=== PATIENT | female | born 1990 | race Asian ===

== ENCOUNTER → 2020-10-17 11:40 | Outpatient (CLI) | payer OTHER, SELFPAY ==
[2020-10-19 09:56] LABS: Chlamydia trachomatis NAA Negative (Negative); Neisseria gonorrhoeae NAA Negative (Negative)
== END ==
PROVIDERS: Visit Provider Specialist
DX: Z34.81 Encounter for supervision of other normal pregnancy, first trimester (principal); Z11.3 Encounter for screening for infections with a predominantly sexual mode of transmission
CPT/HCPCS: 87491; 87591

== ENCOUNTER → 2020-10-17 12:26 | Outpatient (CLI) | payer OTHER, SELFPAY ==
[2020-10-17 13:49] LABS: Add Manual Diff / Slide Review NO; Basophils Absolute Auto 0 /uL (0-100); Basophils Percent Auto 0.2 % (0-2); Eosinophils Absolute Auto 100 /uL (0-450); Eosinophils Percent Auto 2.1 % (2-4); Hematocrit 38.6 % (36-46); Hemoglobin 13.6 g/dL (12.0-16.0); Lymphocytes Absolute Auto 1200 /uL (1100-4500); Lymphocytes Percent Auto 19.5 % (25-40); Mean Corpuscular HGB Conc 35.2 % (30-36); Mean Corpuscular Hemoglobin 29.2 PG (26-34); Monocytes Absolute Auto 400 /uL (0-900); Monocytes Percent Auto 6.9 % (3-14); Neutrophils Absolute Auto 4500 /uL (1500-7000); Neutrophils Percent Auto 71.3 % (50-75); Platelet Count 253 X10^3/uL (150-400); Red Blood Cell Count 4.65 X10^6/uL (4.0-5.2); Red Cell Distribution Width 12.4 % (11.6-14.8); White Blood Cell Count 6.3 X10^3/uL (4.5-11.0)
[2020-10-17 14:16] LABS: Appearance Urine UA CLEAR; Bilirubin Urine UA NEGATIVE (NEGATIVE); Color Urine UA YELLOW; Glucose Urine UA NEGATIVE (Negative); Ketones Urine UA NEGATIVE (NEGATIVE); Leukocyte Esterase Urine UA 1+ (NEGATIVE); Nitrite Urine UA NEGATIVE (Negative); Occult Blood Urine UA NEGATIVE (Negative); Protein Urine UA NEGATIVE (Negative); Urobilinogen Urine UA 0.2 E.U./dL (0.2)
[2020-10-17 14:31] LABS: Bacteria Urine None Seen; RBC Urine None Seen (0-5/HPF)
[2020-10-17 14:55] LABS: WBC Urine 0-1/HPF (0-5/HPF)
[2020-10-18 09:15] LABS: RPR Screen Non Reactive (Non Reactive); Varicella IgG Antibody 1054 index (Immune >165)
[2020-10-20 16:17] LABS: Hepatitis B Surface Antigen NEGATIVE s/c (NEGATIVE); Rubella Antibody IgG 14.9 IU/mL (>15)
[2020-10-20 16:42] LABS: HIV 1 & 2 Ab/Ag 4th Gen Combo NEGATIVE (NEGATIVE); Hep C Virus Ab w/Reflex Quant NEGATIVE s/c (NEGATIVE)
== END ==
PROVIDERS: Referring Provider Specialist; Visit Provider Specialist
DX: Z34.81 Encounter for supervision of other normal pregnancy, first trimester (principal); Z11.3 Encounter for screening for infections with a predominantly sexual mode of transmission
CPT/HCPCS: 36415; 80055; 81003; 81015; 86787; 86803; 86850; 86900; 86901; 87086; 87389; 87491; 87591

== ENCOUNTER → 2020-12-10 13:58 | Outpatient (CLI) | payer OTHER, SELFPAY ==
[2020-12-12 19:38] LABS: AFP, Serum 21.5 ng/mL (.); Calc Gestational Age Ultrasound (.); Inhibin A, Dimeric 52.92 pg/mL (.); Inhibin A, MoM 0.34 (.); Maternal Ethnicity Other (.); Maternal Weight 152 lbs (.); Number of Fetuses No (.); OSBR Risk 1 IN 10000 (.); Results Report (.); Test Results *Screen Positive* (.); hCG, MoM 0.23 (.); hCG, Serum 9242 mIU/mL (.)
== END ==
PROVIDERS: Referring Provider Specialist; Visit Provider Specialist
DX: Z34.82 Encounter for supervision of other normal pregnancy, second trimester (principal); Z3A.16 16 weeks gestation of pregnancy
CPT/HCPCS: 36415; 82105; 82677; 84702; 86336

== ENCOUNTER → 2021-01-08 15:07 | Outpatient (CLI) | payer OTHER, SELFPAY ==
--- NOTE | 2021-01-08 15:09 | DI.US.S_ITS ---
PROCEDURE: US OB >= 14 WEEKS FETUS INDICATIONS: ANATOMY OUTSIDE/PRIOR DATING DATA: Last menstrual period (LMP): 08/19/2020. LMP-based estimated date of delivery (NAZ): 05/26/2021 . First dating scan (date and location): 01/08/2021 . Estimated date of delivery (NAZ) from first dating scan: 05/29/2021 . TECHNIQUE: Real-time scanning was performed of the fetus, with image documentation and biometric measurements. Endovaginal scanning: No COMPARISON: [facility], , OB >= 14 WEEKS FETUS, 01/08/2021, 14:49. FINDINGS: General: A single living intrauterine gestation is present. Presentation: Vertex. Placenta: Placental position is anterior , without previa. Amniotic fluid index: 14.7 cm, normal range is 5-24 cm. heart rate: 155 beats per minute. Maternal cervical canal: 4.6 cm long. Normal lower limit is 2.5 cm. biometrics: Biparietal diameter: 20 weeks 1 day Head circumference: 19 weeks 5 days Abdominal circumference: 20 weeks 2 days Femur length: 19 weeks 2 days Estimated gestational age from initial scan: 20 weeks 2 days Composite gestational age from present scan: 19 weeks 6 days Estimated weight and percentile: 315 g, 20 second percentile Measurement variability for biometric dating: +/- 7 days from 14 weeks to 15 weeks 6 days gestation, +/- 10 days from 16 weeks to 21 weeks 6 days gestation, +/- 2 weeks from 22 weeks to 27 weeks 6 days gestation, +/- 3 weeks for 28 weeks gestation or later. weight reference: 4500 g or EFW >90/95% is considered macrosomia or large for gestational age. EFW <10% is small for gestational age. EFW 5% or less is considered intra-uterine growth restriction. Anatomic survey: Neuro: Ventricles are non-dilated at less than 10 mm. Cisterna magna is normal at 3-11 mm. Cerebellum is normal in size and morphology. Nuchal skin fold: Normal at less than 6 mm between 14-21 weeks gestational age. Face: Nose and lips, facial profile are normal. Spine: Not well seen. Heart: 4-chambered heart is present, with normal ventricular outflow tracts. Diaphragm: Diaphragm is intact. Stomach: Left-sided stomach is present. Kidneys: No hydronephrosis. Normal is less than 5 mm in 2nd trimester, less than 7 mm in 3rd trimester. Cord: 3-vessel cord has orthotopic insertion. Bladder: Normal in size. Extremities: All 4 extremities identified. IMPRESSION: 1. Single living IUP redemonstrated and interval growth is normal. 2. spine not well visualized; otherwise normal anatomic survey. Dictated by: Lul Bain [facility] Interpreted: Aniceto De La Torre MD on 01/08/2021 at 16:37 Transcribed by: BRIDGET on 01/08/2021 at 16:39 Approved by: Aniceto De La Torre M.D. on 01/08/2021 at 16:55
== END ==
PROVIDERS: PCP Family Medicine; Referring Provider Specialist; Visit Provider Specialist
DX: Z34.82 Encounter for supervision of other normal pregnancy, second trimester (principal); Z3A.19 19 weeks gestation of pregnancy
CPT/HCPCS: 76811

== ENCOUNTER → 2021-01-21 15:43 | Outpatient (CLI) | payer OTHER, SELFPAY ==
--- NOTE | 2021-01-21 15:44 | DI.US.S_ITS ---
PROCEDURE: US OB FOLLOW UP INDICATIONS: Spine not well seen OUTSIDE/PRIOR DATING DATA: Last menstrual period (LMP): 08/19/2020. LMP-based estimated date of delivery (NAZ): 05/26/2021. First dating scan (date and location): 01/08/2021. Estimated date of delivery (NAZ) from first dating scan: 05/29/2021. TECHNIQUE: Real-time scanning was performed of the fetus, with image documentation. Endovaginal scanning: Not performed COMPARISON: 01/08/2021. FINDINGS: A single living intrauterine gestation is present. Presentation: Cephalic. Placenta: Placental position is anterior, without previa. heart rate: 144 beats per minute. Estimated gestational age from prior scan: 21 weeks 5 days. spine is now seen and is normal in appearance. IMPRESSION: 1. [place] living intrauterine at 21 weeks 5 days based on prior ultrasound. 2. spine is now seen and normal in appearance. Completed anatomic survey. Dictated by: Kevyn Villa M.D. on 01/21/2021 at 17:30 Approved by: Kevyn Villa M.D. on 01/21/2021 at 17:35
== END ==
PROVIDERS: PCP Family Medicine; Referring Provider Specialist; Visit Provider Specialist
DX: Z36.2 Encounter for other antenatal screening follow-up (principal); Z3A.21 21 weeks gestation of pregnancy
CPT/HCPCS: 76816

== ENCOUNTER → 2021-02-19 07:24 | Outpatient (CLI) | payer OTHER, SELFPAY ==
[2021-02-19 10:26] LABS: Hematocrit 33.1 % (36-46); Hemoglobin 11.5 g/dL (12.0-16.0)
[2021-02-19 11:34] LABS: GTT (PREG) 1 Hour PP 50gm Dose 101 mg/dL (76-139)
== END ==
PROVIDERS: PCP Family Medicine; Referring Provider Specialist; Visit Provider Specialist
DX: Z34.82 Encounter for supervision of other normal pregnancy, second trimester (principal); Z3A.25 25 weeks gestation of pregnancy
CPT/HCPCS: 36415; 82950; 85014; 85018

== ENCOUNTER → 2021-04-29 11:36 | Outpatient (CLI) | payer OTHER, SELFPAY ==
[2021-04-30 15:39] LABS: Strep Grp B PCR NEG for Grp B Strep
== END ==
PROVIDERS: PCP Family Medicine; Visit Provider Specialist
DX: Z34.83 Encounter for supervision of other normal pregnancy, third trimester (principal); Z3A.36 36 weeks gestation of pregnancy
CPT/HCPCS: 87653

== ENCOUNTER → 2021-05-18 09:38 | Outpatient (CLI) | payer OTHER, SELFPAY ==
[2021-05-18 10:58] LABS: COVID19 -Nasal RAPID Negative (Negative)
== END ==
PROVIDERS: PCP Family Medicine; Visit Provider Specialist
DX: Z01.812 Encounter for preprocedural laboratory examination (principal); Z20.822 Contact with and (suspected) exposure to COVID-19
CPT/HCPCS: 87635

== ENCOUNTER 2021-05-19 11:36 | Inpatient (IN) | payer OTHER, SELFPAY ==
[2021-05-13 15:20] VITALS: BP 115/57; PULSE 67; RESP 24; O2SAT 100
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
[2021-05-19 12:54] VITALS: BP 125/65
[2021-05-19] MEDS: LACTATED RINGERS 1,000 ML 100 ML IV ×3 (13:05→21:13)
[2021-05-19 13:16] LABS: Add Manual Diff / Slide Review NO; Basophils Absolute Auto 0 /uL (0-100); Basophils Percent Auto 0.4 % (0-2); Eosinophils Absolute Auto 100 /uL (0-450); Eosinophils Percent Auto 0.8 % (2-4); Hematocrit 38.3 % (36-46); Hemoglobin 12.8 g/dL (12.0-16.0); Lymphocytes Absolute Auto 1400 /uL (1100-4500); Lymphocytes Percent Auto 16.2 % (25-40); Mean Corpuscular HGB Conc 33.3 % (30-36); Mean Corpuscular Hemoglobin 27.8 PG (26-34); Mean Corpuscular Volume 83.4 fL (80-100); Monocytes Absolute Auto 600 /uL (0-900); Monocytes Percent Auto 6.4 % (3-14); Neutrophils Absolute Auto 6700 /uL (1500-7000); Neutrophils Percent Auto 76.2 % (50-75); Platelet Count 257 X10^3/uL (150-400); Red Blood Cell Count 4.59 X10^6/uL (4.0-5.2); Red Cell Distribution Width 13.7 % (11.6-14.8); White Blood Cell Count 8.8 X10^3/uL (4.5-11.0)
[2021-05-19] MEDS: CEFAZOLIN 1 GM VIAL 2 GM IV (14:20)
--- NOTE | 2021-05-19 14:46 | SUR.OPER ---
Supine on Padded OR bed, head on pillow, safety belt at thigh, arms secured on padded arm boards at <90 degrees abduction. Bump under right buttock. Legs uncrossed with pillow under knees, gel pad to heels, tape over blanket to lower legs.
--- NOTE | 2021-05-19 14:46 | SUR.OPER ---
Viable female delivered at 1436. Placenta and cord blood sent with L&D nurse.
[2021-05-19 15:15] VITALS: BP 114/53; PULSE 72; RESP 16; TEMP 36; O2SAT 100
--- NOTE | 2021-05-19 15:23 | PM.OP.1 ---
Operative Date/Time/Diagnoses Date of procedure: 05/19/21 Time of procedure: 15:23 Pre-op diagnosis: 39 week gestation with prior section Post-op diagnosis: same Procedure & Clinicians Procedure: repeat low-transverse section Same procedure as scheduled: Yes Indications: 39 week gestation with prior section Surgeon: Jayshree Martin Transition Advisor: Herbert Velasquez Click Yes if Unassisted: No Anesthesia Type: Spinal Operative Notes Findings: Normal tubes, ovaries, uterus. Viable female infant weighing 6 lb 5 oz with Apgars of 9 and 9 Closure Type: primary Specimen(s): none sent Applied: catheter ( Reyna) Estimated Blood Loss (mL): 350 Blood products transfused: none Procedure in detail: The patient was brought to the operating room where she underwent A spinal for anesthesia. She was placed in a supine position with a left lateral tilt. A Reyna catheter was placed. Pulsatile stockings were placed and functional throughout the case. 2 g of Ancef were given IV prior to the incision. Warming was in place. The patient was prepped and draped in usual sterile fashion. A low transverse incision was made with a scalpel and the incision was carried down to the fascial layer which was incised transversely with scissors. The rehabilitation assistant did his side of the incision. The midline attachments are superiorly and inferiorly. Some bleeding was controlled Bovie. The rectus muscles were in the midline and the peritoneal incision was made with no damage to internal structures. The peritoneum was incised and superiorly and inferiorly. The incision was stretched with the surgeon and rehabilitation assistant placing traction. Bladder blade was placed and a bladder flap was developed and the bladder held away from the lower uterine segment. An incision was made in the uterus with the scalpel and the incision was extended with stretching. The head was elevated out of the abdomen with assistance from the vacuum extractor and with fundal pressure by the rehabilitation assistant the baby was delivered. The infant was bulb suctioned for clear fluid and handed off to the warmer after delayed cord clamping for 1 minute. Cord blood was collected. The placenta delivered spontaneously with traction. The uterus was cleaned with clean laps. The uterine incision was closed in 2 layers of 0 chromic suture the first a running locking layer the second an imbricating layer. The rehabilitation assistant was helping to expose the incision. The bladder peritoneum was repaired with 2-0 Vicryl suture. The gutters were cleaned of any remaining fluids and ovaries and tubes were observed to be normal. Adequate hemostasis was noted. The perineum was closed with 2-0 Vicryl suture. The fascia layer was closed with 0 Vicryl suture with 2 stitches. The rehabilitation assistant repairing half the incision with helping to retract and expose the incision for the other half. The incision was irrigated and adequate hemostasis noted. The incision was closed with interrupted 3-0 Vicryl sutures and then a subcuticular stitch of 4-0 Vicryl suture. Steri-Strips were placed. The uterus was massaged to remove any clots. The patient went to recovery room in good condition. Counts of instruments and sponges were correct. Dr. Velasquez was present throughout the case to assist with retraction, fundal pressure to deliver the infant, and suturing half the fascia. Complications: none Post-operative Condition: stable Disposition: other ( Center) Plan for aftercare: routine post section care
[2021-05-19 15:45] VITALS: BP 112/70; PULSE 90; RESP 20; TEMP 36.4; O2SAT 100
[2021-05-19 15:50] VITALS: BP 99/63; PULSE 90; RESP 18; O2SAT 100
--- NOTE | 2021-05-19 16:18 | SUR.PHASEI ---
Pt condition stable VSS, report given to RN Milagro and pt aware of transfer plan.
[2021-05-19] MEDS: OXYTOCIN PREMIX 30 UNIT/500 ML PLAST..BAG 200 UNIT IV (19:23)
[2021-05-19] MEDS: ONDANSETRON 4 MG/2 ML INJ IV (19:24)
[2021-05-19] MEDS: KETOROLAC 30 MG/ML VIAL IV (21:12)
[2021-05-20] MEDS: KETOROLAC 30 MG/ML VIAL IV ×2 (03:25→09:23)
[2021-05-20 07:16] LABS: Add Manual Diff / Slide Review NO; Basophils Absolute Auto 0 /uL (0-100); Basophils Percent Auto 0.1 % (0-2); Eosinophils Absolute Auto 0 /uL (0-450); Eosinophils Percent Auto 0.4 % (2-4); Lymphocytes Absolute Auto 1200 /uL (1100-4500); Lymphocytes Percent Auto 10.9 % (25-40); Mean Corpuscular HGB Conc 33.8 % (30-36); Mean Corpuscular Hemoglobin 28.3 PG (26-34); Mean Corpuscular Volume 83.8 fL (80-100); Monocytes Absolute Auto 900 /uL (0-900); Monocytes Percent Auto 7.8 % (3-14); Neutrophils Absolute Auto 9100 /uL (1500-7000); Neutrophils Percent Auto 80.8 % (50-75); Platelet Count 201 X10^3/uL (150-400); Red Blood Cell Count 2.12 X10^6/uL (4.0-5.2); Red Cell Distribution Width 13.8 % (11.6-14.8); White Blood Cell Count 11.3 X10^3/uL (4.5-11.0)
[2021-05-20 07:18] LABS: Hematocrit 17.8 % (36-46)
--- NOTE | 2021-05-20 07:42 | P.PNOB_ITS ---
Subjective - OB Subjective Patient comments: incisional pain baby status: doing well feeding status: exclusively breast feeding Date Patient Seen: 05/20/21 Time Patient Seen: 07:42 Interval history: Post repeat section day 1. Patient just got out of bed and has some dizziness. She has 7/10 pain over incision but otherwise feels she is doing well. Exam Vital Signs (past 8 hours): Blood pressure 121/68, pulse of 87, temperature 98.7? Oxygen Delivery Method Room Air Narrative Exam Narrative: abdomen is soft, nontender. Uterus is firm, above umbilicus, nontender. Extremities without edema and nontender. Objective Labs Result Diagrams: 05/20/21 06:45 Labs: Laboratory Results - last 24 hr 05/19/21 05/19/21 05/20/21 13:02 13:02 06:45 WBC 8.8 11.3 H RBC 4.59 2.12 L Hgb 12.8 6.0 L* Hct 38.3 17.8 L* MCV 83.4 83.8 MCH 27.8 28.3 MCHC 33.3 33.8 RDW 13.7 13.8 Plt Count 257 201 Neut % (Auto) 76.2 H 80.8 H Lymph % (Auto) 16.2 L 10.9 L [place] % (Auto) 6.4 7.8 Eos % (Auto) 0.8 L 0.4 L Baso % (Auto) 0.4 0.1 Neut # (Auto) 6700 9100 H Lymph # (Auto) 1400 1200 [place] # (Auto) 600 900 Eos # (Auto) 100 0 Baso # (Auto) 0 0 Blood Type O Positive Antibody Screen Negative Assessment & Plan Assessment and Plan (1) Acute blood loss anemia: Status: Acute Plan day: 1 plan OB: routine postop care Comments: Will try IV iron and monitor blood count to see transfusion is necessary. Time Spent With Patient Time: Total time spent is greater than 50% in coordination of care (as d ocumented) at patient's floor/unit and/or counseling patient: Time with patient: less than 15 minutes
[2021-05-20] MEDS: IRON SUCROSE 100 MG in SODIUM CHLORIDE 0.9% 100 ML 420 ML IV (08:47)
[2021-05-20] MEDS: DOCUSATE 100 MG CAPSULE 200 MG PO (08:48)
[2021-05-20] MEDS: ACETAMINOPHEN 325 MG TABLET 650 MG PO ×2 (09:23→15:23)
[2021-05-20] MEDS: IBUPROFEN 600 MG TABLET PO ×2 (15:22→21:11)
[2021-05-20] MEDS: OXYCODONE IR 5 MG TABLET PO ×2 (17:15→21:13)
[2021-05-20 18:11] LABS: Hematocrit 16.3 % (36-46); Hemoglobin 5.5 g/dL (12.0-16.0)
--- NOTE | 2021-05-20 20:10 | PM.OBPN.1 ---
Subjective - OB Subjective Patient comments: incisional pain baby status: doing well feeding status: exclusively breast feeding Date Patient Seen: 05/20/21 Time Patient Seen: 20:10 Interval history: Patient is ambulatory. She has some initial mild dizziness but overall is feeling well. She has some intermittent headaches. She is urinating well. She is passing gas. Exam Vital Signs (past 8 hours): Blood pressure 126/70, pulse 78, temperature 98.3? Oxygen Delivery Method Room Air Narrative Exam Narrative: Abdomen is soft, nontender. Uterus is firm, at U, appropriately tender. Dressing is clean, dry, intact. Mild lochia. Extremities without edema and nontender. Objective Labs Result Diagrams: 05/20/21 17:01 Labs: Laboratory Results - last 24 hr 05/20/21 05/20/21 06:45 17:01 WBC 11.3 H RBC 2.12 L Hgb 6.0 L* 5.5 L* Hct 17.8 L* 16.3 L* MCV 83.8 MCH 28.3 MCHC 33.8 RDW 13.8 Plt Count 201 Neut % (Auto) 80.8 H Lymph % (Auto) 10.9 L [place] % (Auto) 7.8 Eos % (Auto) 0.4 L Baso % (Auto) 0.1 Neut # (Auto) 9100 H Lymph # (Auto) 1200 [place] # (Auto) 900 Eos # (Auto) 0 Baso # (Auto) 0 Assessment & Plan Assessment and Plan (1) Acute blood loss anemia: Status: Acute Plan day: 1 plan OB: routine postop care Comments: Patient is stable without blood transfusion at this time. Repeat CBC in a.m.. Time Spent With Patient Time: Total time spent is greater than 50% in coordination of care (as documented) at patient's floor/unit and/or counseling patient: Time with patient: less than 15 minutes
[2021-05-21] VITALS (7 sets, daily range): BP systolic 112–129; BP diastolic 67–80; PULSE 91–109; RESP 15–18; TEMP 36.9–37; O2SAT 96–100
[2021-05-21] MEDS: OXYCODONE IR 5 MG TABLET PO ×4 (04:20→21:15)
[2021-05-21] MEDS: IBUPROFEN 600 MG TABLET PO ×2 (04:45→13:13)
[2021-05-21] MEDS: ACETAMINOPHEN 325 MG TABLET 650 MG PO ×3 (04:45→21:15)
[2021-05-21 06:48] LABS: Add Manual Diff / Slide Review NO; Basophils Absolute Auto 0 /uL (0-100); Basophils Percent Auto 0.2 % (0-2); Eosinophils Absolute Auto 100 /uL (0-450); Lymphocytes Absolute Auto 1300 /uL (1100-4500); Mean Corpuscular Hemoglobin 28.7 PG (26-34); Mean Corpuscular Volume 84.3 fL (80-100); Monocytes Absolute Auto 700 /uL (0-900); Monocytes Percent Auto 6.9 % (3-14); Neutrophils Absolute Auto 8500 /uL (1500-7000); Neutrophils Percent Auto 79.9 % (50-75); Platelet Count 164 X10^3/uL (150-400); Red Blood Cell Count 1.61 X10^6/uL (4.0-5.2); Red Cell Distribution Width 14.2 % (11.6-14.8); White Blood Cell Count 10.6 X10^3/uL (4.5-11.0)
[2021-05-21 06:51] LABS: Hematocrit 13.6 % (36-46); Hemoglobin 4.6 g/dL (12.0-16.0)
--- NOTE | 2021-05-21 07:55 | PM.PREOP ---
Pre-operative Note COVID-19 COVID-19 status: Negative Result date/Date tested (Pos, Neg/Pending): 05/18/21 Interval Note History & Physical reviewed/Exam performed by Physician: Yes Changes to H&P: Yes H&P completed within 30 days and has changed as indicated here:: Post section drop in hematocrit
--- NOTE | 2021-05-21 07:56 | PM.OBPN.1 ---
Subjective - OB Subjective Patient comments: incisional pain, tolerating diet and flatus present baby status: doing well [place] feeding status: exclusively breast feeding Date Patient Seen: 05/21/21 Time Patient Seen: 07:57 Interval history: Patient does state she feels like her abdomen is increasing in size. No nausea. Incisional pain only. Exam Vital Signs (past 8 hours): Blood pressure 117/69, pulse 104, temperature 99.9? Oxygen Delivery Method Room Air Narrative Exam Narrative: Patient's abdomen is soft, nontender. Uterus is firm, at U, appropriately tender. Dressing is clean, dry, intact. Mild lochia. Extremities without edema and nontender. Objective Labs Result Diagrams: 05/21/21 06:38 Labs: Laboratory Results - last 24 hr 05/19/21 05/20/21 05/21/21 13:02 17:01 06:38 WBC 10.6 RBC 1.61 L Hgb 5.5 L* 4.6 L* Hct 16.3 L* 13.6 L* MCV 84.3 MCH 28.7 MCHC 34.0 RDW 14.2 Plt Count 164 Neut % (Auto) 79.9 H Lymph % (Auto) 12.0 L [place] % (Auto) 6.9 Eos % (Auto) 1.0 L Baso % (Auto) 0.2 Neut # (Auto) 8500 H Lymph # (Auto) 1300 [place] # (Auto) 700 Eos # (Auto) 100 Baso # (Auto) 0 Crossmatch See Detail Assessment & Plan Assessment and Plan (1) Acute blood loss anemia: Status: Acute Plan day: 2 Comments: Due to the continued fall and hematocrit patient will be return to the operating room for exploratory laparotomy. She will received 2 units of packed red blood cells. Time Spent With Patient Time: Total time spent is greater than 50% in coordination of care (as documented) at patient's floor/unit and/or counseling patient: Time with patient: less than 15 minutes
[2021-05-21 08:38] LABS: Fibrinogen 488 mg/dL (211-428); INR 0.9 (0.9-1.3); Prothrombin Time 9.7 SECONDS (10.1-12.7)
[2021-05-21] MEDS: CEFAZOLIN 1 GM VIAL 2 GM IV (10:40)
--- NOTE | 2021-05-21 10:47 | SUR.OPER ---
Supine on padded OR bed, head on pillow, arms secured on padded arm boards at <90 degrees abduction, legs uncrossed, safety belt at thigh, tape over blanket over lower legs.
[2021-05-21] MEDS: LACTATED RINGERS 1,000 ML 100 ML IV (11:37)
--- NOTE | 2021-05-21 13:18 | PM.OP.1 ---
Operative Date/Time/Diagnoses Date of procedure: 05/21/21 Time of procedure: 12:00 Pre-op diagnosis: 2 days post section with continuing drop of hematocrit Post-op diagnosis: same Procedure & Clinicians Procedure: Exploratory laparotomy. Cauterization minor bleeding. Sutures placed on possible bleeding area of the uterine incision. Same procedure as scheduled: Yes Indications: Patient with continued falling of hematocrit post section on 05/19/2021 Surgeon: Jayshree Martin Healthcare Architect: Renita Munoz Click Yes if Unassisted: No Anesthesia Type: General Operative Notes Findings: Hematoma in the adipose layer of the incision. Hematoma under the fascial layer of the incision. Blood in the abdomen. Bleeding on the left side of the uterine incision. Closure Type: primary Specimen(s): none sent Applied: catheter (Reyna) Estimated Blood Loss (mL): 50 Blood products transfused: packed red blood cells (1st unit packed red blood cell finished infusion in OR) Procedure in detail: Patient was brought to the operating room where she underwent general anesthesia. She was placed in a supine position and prepped and draped in the usual sterile fashion. A Reyna catheter was placed. Pulsatile stockings were in place and functional. Warming was in place. 2 g of Ancef were given IV prior to beginning the case. A check system was reviewed with the staff in the room prior to beginning of the case. The prior incision was opened blood clot removed. Fascial layer was opened them blood clot removed. The perineum was opened and blood was removed. The uterus was elevated out of the abdomen so that careful examination of the retroperitoneal spaces could be performed. The uterus is placed back in the abdomen. The bladder flap was opened. [id number] sutures of 1 chromic suture was performed on the left side of the incision. Adequate hemostasis is noted. The bladder flap was repaired with 2 0 Vicryl suture. Careful evaluation did not reveal any further bleeding. The abdomen was irrigated copiously. The perineum was repaired with 2 0 Vicryl suture. Areas of oozing were controlled with the Bovie. Half of the fascial incision was closed with 1 Vicryl suture. There appeared to be some oozing from the muscle in the midline towards the pubic bone. This was treated with Surgicel. The remaining fashion surgeon was closed with 1 Vicryl suture. The incision was irrigated copiously. Areas of oozing were controlled with the Bovie. The adipose layer was reapproximated with interrupted 3-0 Vicryl sutures. Skin was closed with 4-0 Vicryl. Steri-Strips were placed. A pressure dressing was placed as well as an abdominal binder. Patient did received 10 units of Pitocin in 200 cc of LR because of bogginess of the uterus. Dr. Munoz was present through the case to help with retraction and suturing. Complications: none Post-operative Condition: stable Disposition: other ( Center) Plan for aftercare: Monitor for bleeding
[2021-05-21] MEDS: TRANEXAMIC ACID 1,000 MG in SODIUM CHLORIDE 0.9% 100 ML 200 ML IV (14:01)
[2021-05-21] MEDS: ALBUTEROL 2.5 MG/3 ML NEB (ADULT) INH (20:20)
[2021-05-21 20:34] LABS: Hemoglobin 6.6 g/dL (12.0-16.0)
[2021-05-22] MEDS: ACETAMINOPHEN 325 MG TABLET 650 MG PO ×3 (03:09→16:37)
[2021-05-22] MEDS: OXYCODONE IR 5 MG TABLET PO ×4 (03:10→16:38)
[2021-05-22 06:30] LABS: Add Manual Diff / Slide Review NO; Basophils Absolute Auto 0 /uL (0-100); Eosinophils Absolute Auto 0 /uL (0-450); Eosinophils Percent Auto 0.1 % (2-4); Lymphocytes Absolute Auto 1100 /uL (1100-4500); Lymphocytes Percent Auto 6.8 % (25-40); Mean Corpuscular HGB Conc 33.3 % (30-36); Mean Corpuscular Hemoglobin 29.1 PG (26-34); Mean Corpuscular Volume 87.5 fL (80-100); Monocytes Absolute Auto 900 /uL (0-900); Monocytes Percent Auto 6.2 % (3-14); Neutrophils Absolute Auto 13400 /uL (1500-7000); Neutrophils Percent Auto 86.9 % (50-75); Platelet Count 199 X10^3/uL (150-400); Red Blood Cell Count 2.35 X10^6/uL (4.0-5.2); Red Cell Distribution Width 14.5 % (11.6-14.8); White Blood Cell Count 15.4 X10^3/uL (4.5-11.0)
[2021-05-22 06:32] LABS: Hemoglobin 6.8 g/dL (12.0-16.0)
[2021-05-22 06:33] LABS: Hematocrit 20.5 % (36-46)
[2021-05-22] MEDS: DOCUSATE 100 MG CAPSULE 200 MG PO (08:30)
[2021-05-22] MEDS: MEASLES,MUMPS,RUBELLA VACC/PF 0.5 ML VIAL SUBCUT (15:44)
[2021-05-22 17:04] VITALS: BP 125/81; PULSE 90; RESP 16; TEMP 37.7
--- NOTE | 2021-05-27 06:39 | P.DS_ITS ---
Discharge Providers Provider Date of admission: 05/19/21 11:36 Discharge Date: 05/22/21 Primary care physician: Sara Osborn DO Consults: 05/19/21 16:12 Consult to Pulverizing And Sifting Operator Routine Comment: Discharge provider: Renita Munoz MD Summary Hospital Course Date Patient Seen: 05/22/21 Time Patient Seen: 13:00 Diagnoses: 39 weeks gestation Repeat low-transverse section Postoperative bleed Exploratory laparotomy with ligation of bleeder Hospital Course: Patient is a 31-year-old 2 para 2 who presented on May 19, 2021 for a scheduled repeat low-transverse section. She underwent this procedure without complication. Her postoperative course was complicated by a significant decrease in her hematocrit. She was taken back to the operating room on May 21, 2021 and was found to have a bleeder in the muscle layer and at the level of the uterus. She received 2 units of packed red blood cells before being taken back to the operating room. Her hematocrit remained stable. She was discharged home on May 22, 2021. She was ambulating independently. She was voiding without the catheter. Her bleeding was minimal from the vagina. Her hematocrit was stable. Peripartum Data Delivery Method: Section (Exploratory laparotomy with ligation of bleeder) Laceration Description: None Episiotomy description: None Procedures: Spinal anesthesia Repeat low-transverse section Transfusion of 2 units of packed red blood cells Exploratory laparotomy with ligation of bleeder complications: hematoma and transfusion 1: Gender: Female Disposition of : home Discharge Diagnosis (1) Acute blood loss anemia: Status: Acute Status at Discharge Cognitive/behavioral status at discharge: oriented Functional status at discharge: independent ambulation Overall status at discharge: patient is progressing back to baseline Time Spent with Patient Time attestation: Total time spent providing and/or coordinating discharge services: Time spent: Less than 30 minutes Objective Labs Result Diagrams: 05/22/21 05:25 Exam Vital Signs (past 8 hours): Oxygen Delivery Method Room Air Narrative Exam Narrative: Generally: Patient is sitting up in bed, holding infant, no acute distress Lungs: Clear to auscultation bilaterally Cardiovascular: Regular rate and rhythm Fundus: Firm at U -2 Incision: Clean dry and intact with bandage Extremities: 1+ edema, negative Homans Discharge Plan Discharge Plan Patient Disposition: Home Discharge orders & Medications Prescriptions: New oxycodone 5 mg tablet 5 mg PO Q4H PRN (Reason: pain) Qty: 20 RF: 0 Continued prenat.vits,addison,[id number] Tablet 1 tab PO DAILY RF: 0 ascorbic acid (vitamin C) 250 mg tablet 250 mg PO DAILY RF: 0 cholecalciferol (vitamin D3) 50 mcg (2,000 unit) tablet 50 mcg PO DAILY RF: 0 Fiber Gummies 2 gram tablet,chewable 5 g PO .COMPLEX RF: 0 albuterol sulfate 90 mcg/actuation aerosol powdr breath activated 1 inh inhalation Q4-6H PRN (Reason: Shortness Of Breath Or Wheezing) RF: 0 montelukast 10 mg tablet 10 mg PO DAILY RF: 0 Discontinued omeprazole 40 mg capsule,delayed release(DR/EC) 40 mg PO DAILY Qty: 30 RF: 3 No Action oxycodone 5 mg tablet 5 mg PO Q4H PRN (Reason: pain) Qty: 20 RF: 0 Follow up/Referrals: Herbert Velasquez MD [Physician] - (Incision check: Dr. Velasquez, Tuesday @ 2:45pm) Diet/Activity/Treatments Diet: Regular Activity: No heavy lifting. Nothing more than 8# Skin/Wound/Dressing Care Report to your healthcare provider any signs of infection, such as:: chills, fever, increased pain, unusual drainage and unusual redness Dressing: Remove outer white dressing after first shower. Leave steri strips in place until post op visit Visit Report/Discharge Packet Instructions: DI for , DI for Prescription Opioid Use Stand Alone Forms: Discharge: Care, Surgery Discharge Discharge Data Primary Care Provider: Sara Osborn
== END 2021-05-22 18:32 | disposition home or self-care (01) | DRG 787 ==
PROVIDERS: Admitting Provider Specialist; PCP Family Medicine; Referring Provider Specialist; Visit Provider Specialist
PROC: 10D00Z1 Extraction of Products of Conception, Low, Open Approach (ICD-10-PCS; CPT 59514; principal; 2021-05-19 13:15)
PROC: 0WJJ0ZZ Inspection of Pelvic Cavity, Open Approach (ICD-10-PCS; CPT 49000; principal; 2021-05-21 10:00)
DX: O34.211 Maternal care for low transverse scar from previous cesarean delivery (principal); D62 Acute posthemorrhagic anemia; L76.32 Postprocedural hematoma of skin and subcutaneous tissue following other procedure; Z3A.39 39 weeks gestation of pregnancy; Z37.0 Single live birth
CPT/HCPCS: 36415; 36430; 59050; 59510; 59514; 85014; 85018; 85025; 85384; 85610; 86644; 86850; 86900; 86901; 93005; 93010; 94640; P9016; J0690; J1100; J1756; J1885; J2274; J2405; J2590; J2704; J3010; J7613

== ENCOUNTER → 2021-06-03 14:20 | Outpatient (CLI) | payer OTHER, SELFPAY ==
[2021-06-03 15:07] LABS: Add Manual Diff / Slide Review NO; Basophils Absolute Auto 0 /uL (0-100); Basophils Percent Auto 0.5 % (0-2); Eosinophils Absolute Auto 100 /uL (0-450); Eosinophils Percent Auto 1.9 % (2-4); Hematocrit 34.5 % (36-46); Hemoglobin 11.2 g/dL (12.0-16.0); Lymphocytes Absolute Auto 1300 /uL (1100-4500); Lymphocytes Percent Auto 18.5 % (25-40); Mean Corpuscular HGB Conc 32.4 % (30-36); Mean Corpuscular Hemoglobin 27.8 PG (26-34); Mean Corpuscular Volume 85.7 fL (80-100); Monocytes Absolute Auto 300 /uL (0-900); Neutrophils Absolute Auto 5000 /uL (1500-7000); Neutrophils Percent Auto 74.1 % (50-75); Platelet Count 604 X10^3/uL (150-400); Red Blood Cell Count 4.03 X10^6/uL (4.0-5.2); Red Cell Distribution Width 14.4 % (11.6-14.8); White Blood Cell Count 6.8 X10^3/uL (4.5-11.0)
[2021-06-03 16:05] LABS: TSH w/ Reflex to FT4 0.46 uIU/mL (0.47-4.68)
[2021-06-03 18:44] LABS: Free T4, Direct Thyroxine 1.07 ng/dL (0.78-2.19)
== END ==
PROVIDERS: PCP Family Medicine; Referring Provider Family Medicine; Visit Provider Family Medicine
DX: D62 Acute posthemorrhagic anemia (principal)
CPT/HCPCS: 36415; 84439; 84443; 85025

== ENCOUNTER → 2021-06-22 13:14 | Outpatient (CLI) | payer OTHER, SELFPAY ==
[2021-06-22 14:38] LABS: Add Manual Diff / Slide Review NO; Basophils Absolute Auto 0 /uL (0-100); Basophils Percent Auto 0.6 % (0-2); Eosinophils Absolute Auto 100 /uL (0-450); Eosinophils Percent Auto 2.2 % (2-4); Hemoglobin 12.3 g/dL (12.0-16.0); Lymphocytes Absolute Auto 1500 /uL (1100-4500); Lymphocytes Percent Auto 23.9 % (25-40); Mean Corpuscular HGB Conc 33.2 % (30-36); Mean Corpuscular Volume 81.4 fL (80-100); Monocytes Absolute Auto 300 /uL (0-900); Monocytes Percent Auto 5.6 % (3-14); Neutrophils Absolute Auto 4200 /uL (1500-7000); Neutrophils Percent Auto 67.7 % (50-75); Platelet Count 321 X10^3/uL (150-400); Red Blood Cell Count 4.55 X10^6/uL (4.0-5.2); White Blood Cell Count 6.2 X10^3/uL (4.5-11.0)
[2021-06-22 15:34] LABS: TSH w/ Reflex to FT4 1.25 uIU/mL (0.47-4.68)
== END ==
PROVIDERS: PCP Family Medicine; Referring Provider Family Medicine; Visit Provider Family Medicine
DX: D62 Acute posthemorrhagic anemia (principal); E05.90 Thyrotoxicosis, unspecified without thyrotoxic crisis or storm
CPT/HCPCS: 36415; 84443; 85025